=== PATIENT | female | born 1970 | race Caucasian/White ===

== ENCOUNTER → 2021-06-02 16:42 | Outpatient (BNVA) | payer SELFPAY | PROVIDERS: Family Provider Nurse Practitioner; PCP Obstetrics & Gynecology; Visit Provider Nurse Practitioner Family | DX: L72.3 Sebaceous cyst (principal); L08.9 Local infection of the skin and subcutaneous tissue, unspecified | CPT/HCPCS: 87070 ==

== ENCOUNTER → 2023-11-10 15:13 | Outpatient (BNVA) | payer SELFPAY | PROVIDERS: Family Provider Nurse Practitioner; PCP Obstetrics & Gynecology; Visit Provider Nurse Practitioner Family | DX: M54.9 Dorsalgia, unspecified (principal); Z79.899 Other long term (current) drug therapy | CPT/HCPCS: 81000 ==

== ENCOUNTER 2025-02-09 19:01 | Emergency (ER) | payer MEDICAID, SELFPAY ==
[2025-02-09 19:12] VITALS: BP 117/71; PULSE 92; RESP 17; TEMP 36.6; O2SAT 97; BMI 31.1
[2025-02-09 20:04] LABS: Hematocrit 40.1 % (36-47); Hemoglobin 13.30 g/dL (11.27-16.99); Mean Corpuscular HGB Conc 33.2 g/dL (30-55); Mean Corpuscular Hemoglobin 28.9 pg (27-33); Mean Corpuscular Volume 87.0 fl (85-98); Nucleated Red Blood Cells % 0 %; Platelet Count 304 10^3/cmm (157-399); Red Blood Count 4.61 10^6/uL (3.85-5.65); White Blood Count 15.90 10^3/uL (3.29-11.43)
--- NOTE | 2025-02-09 20:26 | CTR_ITS ---
PROCEDURE INFORMATION: Exam: CT Abdomen And Pelvis With Contrast Exam date and time: 02/09/2025 8:43 PM Age: 55 years old Clinical indication: Pain and abnormal findings; Abnormal lab test; Elevated liver enzymes and elevated wbc and other: Bilirubin; Nausea and vomiting; Abdominal pain; Localized; Prior surgery; Surgery date: 6+ months; Surgery type: Hysterectomy. Csection; C/O upper abd pain with n/v. High liver enzymes, wbc, and bilirubin. TECHNIQUE: Imaging protocol: Computed tomography of the abdomen and pelvis with contrast. Radiation optimization: All CT scans at this facility use at least one of these dose optimization techniques: automated exposure control; mA and/or kV adjustment per patient size (includes targeted exams where dose is matched to clinical indication); or iterative reconstruction. Contrast material: OMNI 350; Contrast volume: 100 ml; Contrast route: INTRAVENOUS (IV); COMPARISON: No relevant prior studies available. RADIATION DOSE METRICS: Total DLP (mGy-cm): 689.72 FINDINGS: Lungs: Visualized lung bases are clear. Liver: Liver is normal in appearance. Gallbladder and biliary ducts: Multiple subcentimeter calcified gallstones within the gallbladder. Gallbladder demonstrates tmam-wn-yuyjeani gallbladder wall thickening. No biliary ductal dilation. Pancreas: The pancreas is unremarkable. Spleen: The spleen is unremarkable. Adrenal glands: The adrenal glands are unremarkable. Kidneys and ureters: Kidneys are normal. No hydronephrosis or nephrolithiasis. Stomach and bowel: No evidence of bowel obstruction. Multiple loops of small bowel, and the cecum, are fluid-filled and nondilated. Appendix: The appendix is well-visualized and is normal in appearance. Intraperitoneal space: No extraluminal free air. Vasculature: Abdominal aorta and its major branches are within normal limits. No abdominal aortic aneurysm. Lymph nodes: No distinct pathologically enlarged lymphadenopathy. Urinary bladder: Urinary bladder demonstrates a mildly diffusely thickened bladder wall. Reproductive: Uterus is absent. Bones/joints: No acute osseous findings. Soft tissues: Visualized superficial soft tissues are within normal limits. CT/CT abdomen pelvis w con* [id number] IMPRESSION: 1. Multiple subcentimeter calcified gallstones within the gallbladder. Gallbladder demonstrates ocil-ta-pwoyxdhe gallbladder wall thickening. No biliary ductal dilation. 2. Liver is normal in appearance. 3. Urinary bladder demonstrates a mildly diffusely thickened bladder wall. This is compatible with cystitis. 4. Multiple loops of small bowel, and the cecum, are fluid-filled and nondilated. 5. The appendix is well-visualized and is normal in appearance.
--- NOTE | 2025-02-09 20:26 | ED_ITS ---
HPI - Abdominal Pain 2 General: Chief Complaint: Abdominal Pain Stated Complaint: N/V abd pain Time Seen by Provider: 02/09/25 20:02 Source: patient Mode of arrival: ambulatory Limitations: no limitations History of Present Illness: 55-year-old female states she has been h aving lower abdominal pain going on throughout the day. States been a sharp pain in her lower abdomen she rates 6 out of 10 she had some nausea and vomiting with it. She denies any fevers denies any dysuria denies any worse improving factors. Associated Symptoms: Reports nausea; Denies chills, diarrhea, dysuria, fever(s) and vomiting Related Data Home Medications ?Medication ?Instructions ?Recorded ?Confirmed multivitamin (Daily Multi-Vitamin 1 tab PO DAILY 06/2312/27/24 tablet) Previous Rx's ?Medication ?Instructions ?Recorded lisinopril 40 mg tablet 40 mg PO DAILY #30 tabs 12/16 09/11 Allergies Allergy/AdvReac Type Severity Reaction Status Date / Time Sulfa (Sulfonamide Allergy ALGY-Hives Verified 12/27/24 16:12 Antibiotics) Review of Systems 2 Const: Denies: fever(s), chills, body aches or change in appetite ENMT: Denies: throat pain or dental pain Card: Denies: chest pain Resp: Denies: dyspnea GI: Reports: abdominal pain and nausea; Denies: vomiting or diarrhea : Denies: dysuria Musc: Denies: neck pain or back pain Skin/Breast: Denies: rash Neuro: Denies: headache(s) PFSH ED 2 PFSH: Medical History No pertinent past medical history Surgical History Hx of section 3 Hx of hysterectomy partial Family History Mother Diabetes Hypertension Social History Smoking and tobacco/nicotine status: never used tobacco/nicotine Second hand smoke exposure: No Alcohol intake: never Substance/Drug Use: never Adopted: No Caregiver/support person: No Lives independently: Yes Household members: significant other and family Housing: House Marital status: Single Number of children: 4 Highest education level completed: High School Graduate service: No Current occupational status: employed Pets and animals: No Physical Exam 2 Const: COMMON NORMALS: no acute distress, patient oriented x3 and healthy appearing HENMT: COMMON NORMALS: normocephalic and atraumatic HEAD & SCALP: n ormocephalic and atraumatic Neck/C-Spine: COMMON NORMALS: full ROM and supple Chest: COMMONS NORMALS: normal inspection of the chest Resp: COMMON NORMALS: normal respiratory effort Cardio: COMMON NORMALS: regular rate RATE: regular rate GI: COMMON NORMALS: Normal to inspection, nondistended, normoactive bowel sounds present, Soft to palpation and no masses PALPATION: Yes Soft to palpation OTHER: mild lower abd tenderness Extremity: COMMON NORMALS: normal to inspection and full ROM Neuro: COMMON NORMALS: patient oriented x3, moves all extremities and no focal motor deficits Psych: COMMON NORMALS: mental status grossly normal, Normal thought process present and cooperative THOUGHT PROCESS: Normal thought process present Skin: COMMON NORMALS: no rashes or lesions noted and no wounds GENERAL SKIN EXAM: no rashes or lesions noted Course 2 Vital Signs: Vital signs: Vital Signs Temperature 97.8 F 02/09/25 19:12 Pulse Rate 92 02/09/25 19:12 Respiratory Rate 17 02/09/25 19:12 Blood Pressure 117/71 02/09/25 19:12 Pulse Oximetry 97 02/09/25 19:12 Oxygen Delivery Me thod Room Air 02/09/25 19:12 MDM - Abdominal Pain Medical Decision Making Patient presents here with abdominal pain CT ultrasound does show cholecystitis. I spoke to our surgeon here who recommended transfer to facility with GI capabilities she does have elevated lipase liver enzymes and bilirubin concern for choledocholithiasis. Did speak to GI at [place] along with hospitalist will transfer there for higher level care of GI capabilities Medical Records I reviewed the patient's medical records. Lab Data I reviewed the patient's lab results. 02/09/25 19:59 02/09/25 19:59 Labs/Radiology: Radiology Impressions Abdomen/Pelvis CT 02/09/25 20:26 IMPRESSION: 1. Multiple subcentimeter calcified gallstones within the gallbladder. Gallbladder demonstrates ueez-dx-wzawrtoa gallbladder wall thickening. No biliary ductal dilation. 2. Liver is normal in appearance. 3. Urinary bladder demonstrates a mildly diffusely thickened bladder wall. This is compatible with cystitis. 4. Multiple loops of small bowel, and the cecum, are fluid-filled and nondilated. 5. The appendix is well-visualized and is normal in appearance. Gallbladder Ultrasound 02/09/25 20:36 IMPRESSION: Gallbladder demonstrates multiple small internal stones with probable internal sludge. Gallbladder wall is thickened up to 0.7 cm. Steam Hammer Operator reports a positive sonographic Neo's sign. These findings are consistent with acute calculus cholecystitis. Laboratory Results WBC 15.90 10^3/uL (3.29-11.43) H 02/09/25 19:59 RBC 4.61 10^6/uL (3.85-5.65) 02/09/25 19:59 Hgb 13.30 g/dL (11.27-16.99) 02/09/25 19:59 Hct 40.1 % (36-47) 02/09/25 19:59 MCV 87.0 fl (85-98) 02/09/25 19:59 MCH 28.9 pg (27-33) 02/09/25 19:59 MCHC 33.2 g/dL (30-55) 02/09/25 19:59 RDW 12.8 % (12.1-15.1) 02/09/25 19:59 Plt Count 304 10^3/cmm (157-399) 02/09/25 19:59 MPV 10.7 fL (7.4-10.4) H 02/09/25 19:59 Neut % (Auto) 88.8 % 02/09/25 19:59 Lymph % (Auto) 6.5 % 02/09/25 19:59 [place] % (Auto) 3.9 % 02/09/25 19:59 Eos % (Auto) 0.1 % 02/09/25 19:59 Baso % (Auto) 0.3 % 02/09/25 19:59 Neut # (Auto) 14.12 10^3/uL (1.8-7.7) H 02/09/25 19:59 Lymph # (Auto) 1.0 10^3/uL (0.8-4.8) 02/09/25 19:59 [place] # (Auto) 0.6 10^3/uL (0.2-0.9) 02/09/25 19:59 Eos # (Auto) 0.0 10^3/uL (0.0-0.8) 02/09/25 19:59 Baso # (Auto) 0.0 10^3/uL (0.0-0.1) 02/09/25 19:59 Nucleated RBC % (auto) 0 % 02/09/25 19:59 Nucleated RBCs # 0.0 /100WBC 02/09/25 19:59 Sodium 139 mmol/L (136-145) 02/09/25 19:59 Potassium 3.8 mmol/L (3.5-5.1) 02/09/25 19:59 Chloride 101 mmol/L (98-107) 02/09/25 19:59 Carbon Dioxide 26 mmol/L (22-29) 02/09/25 19:59 Anion Gap 15.8 (5-19) 02/09/25 19:59 BUN 11 mg/dL (6-20) 02/09/25 19:59 Creatinine 0.7 mg/dL (0.5-0.9) 02/09/25 19:59 GFR Calculation 86.9 mL/min (90-130) L 02/09/25 19:59 Glucose 150 mg/dL (65-115) H 02/09/25 19:59 Calculated Osmolality 290 mOsm/kg (285-295) 02/09/25 19:59 Calcium 9.3 mg/dL (8.5-10.5) 02/09/25 19:59 Total Bilirubin 3.8 mg/dL (0.15-1.2) H 02/09/25 19:59 AST 426 U/L (0-32) H 02/09/25 19:59 ALT 565 U/L (0-33) H 02/09/25 19:59 Alkaline Phosphatase 265 U/L (35-105) H 02/09/25 19:59 Total Protein 7.6 g/dL (6.6-8.7) 02/09/25 19:59 Albumin 4.3 g/dL (3.5-5.2) 02/09/25 19:59 Globulin 3.3 g/dL (1.3-4.6) 02/09/25 19:59 Lipase > 1169 U/L (13-60) H 02/09/25 19:59 Urine Color Dark yellow (Yellow) A 02/09/25 20:39 Urine Appearance Cloudy (CLEAR) A 02/09/25 20:39 Urine pH 5.0 (5-7) 02/09/25 20:39 Ur Specific [place] 1.011 (1.005-1.030) 02/09/25 20:39 Urine Protein 1+ (Negative) A 02/09/25 20:39 Urine Glucose (UA) Negative (Normal) 02/09/25 20:39 Urine Ketones Negative (Negative) 02/09/25 20:39 Urine Blood Negative (Negative) 02/09/25 20:39 Urine Nitrate Negative (Negative) 02/09/25 20:39 Urine Bilirubin 2+ (Negative) H 02/09/25 20:39 Urine Urobilinogen 1.0 mg/dL (Negative) 02/09/25 20:39 Ur Leukocyte Esterase 1+ (Negative) A 02/09/25 20:39 Urine RBC 0-2 /hpf (0-2) 02/09/25 20:39 Urine WBC 6-10 /hpf (0-5) 02/09/25 20:39 Ur Squamous Epith Cells 6-10 /hpf (0-5) 02/09/25 20:39 Amorphous Sediment Not Reportable 02/09/25 20:39 Urine Bacteria 1+ /hpf (NONE) H 02/09/25 20:39 Hyaline Casts 0.40 /lpf 02/09/25 20:39 All radiology interpretation(s) finalized by discharge Discharge Plan Discharge Patient Disposition: Xfer Short-Term Hosp Clinical Impression: Acute cholecystitis, Pancreatitis, Elevated bilirubin Condition: Stable Referrals: Shefali Andrade FNP-C [Primary Care Provider, [facility]] Print Language: Malian Coding Level of Care Code ED Research Greenhouse Supervisor for Myrna Cummins
[2025-02-09 20:30] LABS: Alanine Aminotransferase 565 U/L (0-33); Albumin Level 4.3 g/dL (3.5-5.2); Alkaline Phosphatase 265 U/L (35-105); Anion Gap 15.8 (5-19); Aspartate Amino Transferase 426 U/L (0-32); Blood Urea Nitrogen 11 mg/dL (6-20); Calcium 9.3 mg/dL (8.5-10.5); Carbon Dioxide 26 mmol/L (22-29); Chloride 101 mmol/L (98-107); Creatinine Clr Calc Pharmacy 104.7424; Globulin 3.3 g/dL (1.3-4.6); Glucose 150 mg/dL (65-115); Osmolality Calculated 290 mOsm/kg (285-295); Potassium 3.8 mmol/L (3.5-5.1); Sodium 139 mmol/L (136-145); Total Protein 7.6 g/dL (6.6-8.7)
--- NOTE | 2025-02-09 20:36 | USR_ITS ---
PROCEDURE INFORMATION: Exam: US Abdomen, Limited; Right Upper Quadrant Exam date and time: 02/09/2025 9:22 PM Age: 55 years old Clinical indication: Abdominal pain; Localized; Right upper quadrant (ruq); Additional info: Ruq pain TECHNIQUE: Imaging protocol: Real time ultrasound of the abdomen with image documentation. Limited exam focused on the right upper quadrant. COMPARISON: CT abdomen pelvis w con* [id number] 02/09/2025 8:43 PM FINDINGS: Liver: Visualized liver is normal in appearance. Gallbladder: Gallbladder demonstrates multiple small internal stones with probable internal sludge. Gallbladder wall is thickened up to 0.7 cm. Explosive Operator Fuse reports a positive sonographic Noe's sign. Biliary ducts: No evidence of biliary ductal dilation. Common bile duct measures 0.5 cm in diameter. Pancreas: Pancreas is poorly visualized without large obvious abnormality. Right kidney: Visualized right kidney is normal in appearance. No hydronephrosis. No evidence of renal stones. Aorta: Partially imaged aorta is within normal limits. Inferior vena cava: Partially imaged IVC is within normal limits. US/US gall bladder [id number] IMPRESSION: Gallbladder demonstrates multiple small internal stones with probable internal sludge. Gallbladder wall is thickened up to 0.7 cm. Explosive Operator Fuse reports a positive sonographic Noe's sign. These findings are consistent with acute calculus cholecystitis.
[2025-02-09] MEDS: iohexol 350 mg/mL 500 mL Btl (per mL) IV (20:43)
[2025-02-09 20:51] LABS: Glucose Urine UA Negative (Normal); Nitrate Urine Negative (Negative); Specific Gravity, Urine 1.011 (1.005-1.030)
[2025-02-09 20:53] LABS: Lipase > 1169 U/L (13-60)
[2025-02-09 20:57] LABS: Add Urine Microscopic? YES
[2025-02-09] MEDS: morphine 4 mg/mL SDV 1 mL IVP (20:58)
[2025-02-09] MEDS: ondansetron 2 mg/ML SDV 2 mL 4 MG IVP (20:58)
[2025-02-09] MEDS: piperacillin-tazobactam 3.375 GM in sodium chloride 0.9% (plus) 50 ML IV (21:27)
[2025-02-09 22:30] VITALS: BP 145/80; PULSE 88; RESP 16; O2SAT 95
== END 2025-02-09 23:24 | disposition short-term general hospital (02) ==
PROVIDERS: Emergency Provider Emergency Medicine; PCP Nurse Practitioner Family
DX: K81.0 Acute cholecystitis (principal); K85.90 Acute pancreatitis without necrosis or infection, unspecified; E80.7 Disorder of bilirubin metabolism, unspecified
CPT/HCPCS: 36415; 74177; 76705; 80053; 81001; 83690; 85025; 87040; 96361; 96365; 96375; 99285; J2270; J2405; J2543; J7030

== ENCOUNTER → 2025-06-27 15:18 | Outpatient (BNVA) | payer MEDICAID, SELFPAY | PROVIDERS: PCP Nurse Practitioner Family; Visit Provider Nurse Practitioner Family | DX: I10 Essential (primary) hypertension (principal) | CPT/HCPCS: 80053; 80061; 84443; 85025 ==